=== PATIENT | female | born 1980 | race Caucasian/White ===

== ENCOUNTER 2019-09-17 12:25 | Outpatient (CLI) | payer OTHER ==
[~2019-09-17 12:25] MED LIST: Iopamidol 370 76% 100 ML VIAL ONE
[2019-09-17 13:15] LABS: ALT (SGPT) 12 U/L (8-55); AST (SGOT) 15 U/L (5-34); Albumin 3.9 g/dL (3.5-5.0); Alkaline Phosphatase 55 U/L (40-110); Anion Gap 12 mmol/L (10-20); BUN (Urea Nitrogen) 7 mg/dL (7.0-18.7); Bilirubin, Total 0.4 mg/dL (0.2-1.2); Calc. Creatinine Clearance 0 mL/min (70-130); Calcium 8.7 mg/dL (7.8-10.44); Carbon Dioxide 25 mmol/L (22-29); Chloride 102 mmol/L (98-107); Estimated GFR-MDRD Greater than 90; Globulin 3.4 g/dL (2.4-3.5); Glucose 82 mg/dL (70-105); Protein, Total 7.3 g/dL (6.0-8.3); Sodium 135 mmol/L (136-145)
--- NOTE | 2019-09-17 15:45 | CT ---
CT ABDOMEN AND PELVIS WITH IV CONTRAST 09/17/2019 CLINICAL INFORMATION: Epigastric abdominal pain. Palpable abnormality beneath the xiphoid. COMPARISON: None. Technique: Multiple contiguous axial CT images are obtained through the abdomen and pelvis with IV contrast. Cor onal reformatted images are provided. FINDINGS: Lower Chest: Lung bases are clear. Vessels: Abdominal aorta is normal in caliber. 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 Abdomen: Portal vein:Patent Gallbladder: Surgically absent. Liver: within normal limits. Spleen: within normal limits. Pancreas: within normal limits. Adrenals: within normal limits. Kidneys: within normal limits. Bowel: Normal caliber. Appendix: The appendix is visualized and normal in caliber. Peritoneum: No ascites or free air; no fluid collection. Mesentery and Retroperitoneum: No enlarged mesenteric or retroperitoneal lymph nodes. Abdominal Wall: There is a ventral abdominal wall fat-containing hernia seen just to the right of mid line in the epigastric region with mild stranding in the region of the fat involving the hernia. This may account for patient's palpable abnormality. Pelvis: Reproductive Organs: Uterus is enlarged with a large heterogeneous mass occupying the body and fundus of the uterus. The mass measures 9.8 cm craniocaudal x9 cm AP x8.7 cm transverse. Findings are likely most suggestive an enlarged uterine fibroid. There is a masslike area in the region of the low er uterine segment near/the level of the cervix. This may represent the patient cervix in this region, but an additional fibroid involving the lower uterine segment is a possibility. Follow-up pel maye ultrasound is recommended. Pelvis: Low-density areas are seen in each adnexal region likely due to dominant follicles within eac h ovary. Bladder: Decompressed. Bones: No suspicious lytic or sclerotic osseous lesions are identified. IMPRESSION: 1. 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 2. Large heterogeneous mass involving the body and fundus of the uterus most likely attributable to a n enlarged uterine fibroid. There is also masslike prominence in the lower uterine segment in the region of the cervix. This may be related to prominence of the cervix or an additional uterine fibroi d. Follow-up pelvic ultrasound is recommended for further evaluation. 3. Fat-containing ventral abdominal wall hernia just to the right of midline in the epigastric region . Mild inflammatory stranding is within the herniated fat. 4. Postcholecystectomy changes.
== END 2019-09-17 12:26 | disposition home or self-care (01) ==
LOC: NAV CT 12:25
PROVIDERS: ATTEND Internal Medicine
DX: R19.06 Epigastric swelling, mass or lump (principal); I71.4 Abdominal aortic aneurysm, without rupture; N85.8 Other specified noninflammatory disorders of uterus; K43.9 Ventral hernia without obstruction or gangrene; Z98.890 Other specified postprocedural states; Z90.49 Acquired absence of other specified parts of digestive tract
CPT/HCPCS: 36415; 74177; 80053; Q9967